=== PATIENT | male | born 1955 | race Caucasian/White ===

== ENCOUNTER 2016-07-11 08:03 | Day surgery (SDC) | payer OTHER, BC ==
[~2016-07-11] VITALS: Ht 188 cm; Wt 170.0 kg
[~2016-07-11 08:03] MED LIST: AMIODARONE HCL200 MG PO; AMLODIPINE BESY10 MG PO; ARANESP60 MCG/0.3 IV; ASCORBIC ACID500 M3 PO; CALCIUM 500 +1 EACH PO; CIPRO500 MG PO; CLARITIN,ALAVAR10 MG PO; DAILY MULTIPLE1 EAC2 PO; ERGOCALCIF50000 UNIT PO; FUROSEMIDE40 MG PO; HUMALOG100 UNIT/1 SC; LEVEMIR100 UNIT/2 SC; LITE COAT ASPI325 M1 PO; METFORMIN HCL500 MG PO; METOPROLOL SUCC50 MG PO; MINOXIDIL2.5 MG PO; NIACIN 500 MG1 EACH PO; PRAVACHOL40 MG PO; PROTONIX40 MG PO; RENVELA800 MG PO; VALSARTAN320 MG PO; VENLAFAXINE HC150 MG PO; VITAMIN B-12250 MC2 PO; WARFARIN SODIUM5 MG PO; WARFARIN SODIUM6 MG PO
[2016-07-11 08:54] LABS: POINT-OF-CARE METER ID UU13113696
[2016-07-11 10:11] LABS: METH RESISTANT S AUREUS PCR NEGATIVE (NEGATIVE)
[2016-07-11 10:13] LABS: PROBE CHECK PASS; SPECIMEN PROCESSING CONTROL PASS
== END 2016-07-11 10:05 | disposition home or self-care (01) ==
LOC: CATH 08:03
PROVIDERS: Surgery
DX: T82.858A Stenosis of other vascular prosthetic devices, implants and grafts, initial encounter (principal); I12.0 Hypertensive chronic kidney disease with stage 5 chronic kidney disease or end stage renal disease; N18.6 End stage renal disease; Z99.2 Dependence on renal dialysis; E11.22 Type 2 diabetes mellitus with diabetic chronic kidney disease; E78.00 Pure hypercholesterolemia, unspecified; I73.9 Peripheral vascular disease, unspecified; Z79.01 Long term (current) use of anticoagulants; Z79.4 Long term (current) use of insulin; Z79.899 Other long term (current) drug therapy
CPT/HCPCS: 82948; 87641; C1725; C1769; C1894; J1644; J2250; J3010

== ENCOUNTER 2016-08-27 08:07 | Day surgery (SDC) | payer OTHER, BC ==
[~2016-08-27] VITALS: Ht 188 cm; Wt 170.0 kg
[2016-08-27 08:47] LABS: POINT-OF-CARE METER ID UU13113696
[2016-08-27 10:00] LABS: POINT-OF-CARE METER ID UU13113819
== END 2016-08-27 10:50 | disposition home or self-care (01) ==
LOC: CATH 08:07
PROVIDERS: Surgery
DX: I12.0 Hypertensive chronic kidney disease with stage 5 chronic kidney disease or end stage renal disease (principal); E11.22 Type 2 diabetes mellitus with diabetic chronic kidney disease; N18.6 End stage renal disease; I87.8 Other specified disorders of veins; Z99.2 Dependence on renal dialysis; E78.00 Pure hypercholesterolemia, unspecified; Z89.512 Acquired absence of left leg below knee; Z89.511 Acquired absence of right leg below knee; Z79.01 Long term (current) use of anticoagulants; Z79.4 Long term (current) use of insulin
CPT/HCPCS: 82948; C1751; C1894; J0690; J1644; J2250; J3010; S0020